=== PATIENT | female | born 1930 | race Caucasian/White ===

== ENCOUNTER 2016-11-09 14:26 | Inpatient (IN) | payer OTHER, MEDICARE ==
--- NOTE | 2016-11-09 14:27 | EDPHY ---
H & P Time Seen by Provider: 11/09/16 14:26 HPI/ROS: CHIEF COMPLAINT: right hip pain after mechanical fall. HISTORY OF PRESENT ILLNESS: Patient is a 86 y/o female arriving via EMS from independent living after a mechanical fall with subsequent right hip pain. A small laceration is present on her scalp. Patient states she hit her head during the fall. Patient takes Aspirin but is otherwise not anticoagulated. Per the patient, her right hip is painful and she is unable to lift that leg. Denies any neck pain, back pain, head pain or other complaints. Last oral intake was around 1330. REVIEW OF SYSTEMS: A comprehensive 10 point review of systems is otherwise negative aside from elements mentioned in the history of present illness. Source: Patient - Medical/Surgical History Hx Asthma: No Hx Chronic Respiratory Disease: No Hx Diabetes: No Hx Cardiac Disease: Yes Hx Renal Disease: No Hx Cirrhosis: No Hx Alcoholism: No Hx HIV/AIDS: No Hx Splenectomy or Spleen Trauma: No Other PMH: HLD, HTN, Vertigo - Social History Smoking Status: Former smoker Alcohol Use: None Drug Use: None - Physical Exam Exam: General Appearance: Elderly female, slightly obese, no acute distress Head: Small abrasion to the vertex of the scalp Eyes: Pupils equal, round, reactive ENT, Mouth: No hemotympanum, no oral trauma Neck: Nontender, trachea midline Respiratory: No chest wall tender, subcutaneous air, lungs clear bilaterally Cardiovascular: Regular rate and rhythm Abdomen: Abdomen is soft and nontender, pelvis stable Skin: No lacerations, No abrasion Back: No midline T/L/S pain Extremities: right hip tenderness, decreased active and passive range of motion secondary to pain Neurological: A&Ox3, GCS 15, normal motor function, normal sensory exam Constitutional: Initial Vital Signs Temperature (C) 97.3 C H 11/09/16 15:02 Heart Rate 77 11/09/16 15:02 Respiratory Rate 19 11/09/16 15:02 Blood Pressure 165/86 H 11/09/16 15:02 O2 Sat (%) 98 11/09/16 15:02 O2 Delivery Mode Room Air O2 (L/minute) 2 Allergies/Adverse Reactions: No Known Allergies Allergy (Unverified 11/09/16 15:07) Home Medications: Medication Instructions Recorded Aspirin EC [Aspirin EC 81 mg (*)] 81 mg PO Q48H 01/26/16 C/E/Zn/Cu/OM3/DHA/EPA/LUT/ZEAX 1 each PO BID 01/26/16 [Preservision Areds 2 Softgel] Citalopram [CeleXA 20 MG] 40 mg PO DAILY 01/26/16 Diazepam [Valium 2 MG (*)] 1 mg PO DAILY PRN 01/26/16 Docusate Sodium [Colace 100 MG (*)] 100 mg PO HS PRN 01/26/16 Levothyroxine [Synthroid 100 mcg 100 mcg PO DAILY06 01/26/16 (*)] Meclizine HCl [Meclizine HCl 12.5 12.5 mg PO BID PRN #10 tab 01/26/16 mg (*)] Simvastatin [Zocor] 40 mg PO HS 01/26/16 Medical Decision Making - Diagnostics EKG Interpretation: The 12 lead EKG was interpreted by myself. Normal sinus rhythm, rate 65 with atrial premature complexes. See hard copy and/or "tracemaster" electronic copy for interpretation. Imaging: X-ray: Right hip x-ray was obtained. I viewed the images myself on the PACS system. My interpretation of the images is: no obvious fracture. I discussed the x-ray findings with the patient. X-ray: Chest x-ray was obtained. The radiologist interpretation is Cardiomegaly and peribronchial cuffing with some mild pulmonary venous hypertension. X-ray read by Dr. Girard. . CT scan of the right lower extremity without IV contrast was obtained. I viewed the images independently on the PACS system. I discussed the results of the study with the radiologist, Dr. Long. Impression: Negative for fracture , hematoma or other explanation for acute pain. ED Course/Re-evaluation: Patient evaluation: Patient arrived via EMS from independent living after a mechanical fall with complaints of right hip pain and inability to ambulate. She does have a small abrasion to her scalp but has no complaints of headache or neck pain. She is neurologically intact and not anticoagulated. Given the patient's complaints of hip pain an x-ray was ordered. Clinically she has no evidence of additional injury. 1512: X-ray demonstrates no evidence of an obvious hip fracture.. I have ordered a CT right lower extremity without contrast at this time. 1645: Right extremity CT is negative for fracture. 1650 Reevaluation: The patient's pain is improved at this time. We will attempt to ambulate the patient through the ER. 1716: Patient was unable to bare weight on the affected leg. The patient continues to have a normal neurologic examination. She will require admission to the hospital secondary to the fact she is a significant fall risk. She will require PT and OT evaluation. 1751: I spoke with the hospitalist, Dr. Hayes and he accepts admission for hip contusion. Differential Diagnosis: Differential diagnosis considered includes pelvic fracture, hip fracture, dislocation, retroperitoneal hematoma, neurovascular injury, myofascial strain - Data Points Laboratory Results: Laboratory Results 11/09/16 15:03 11/09/16 15:03 11/09/16 15:03 WBC 6.33 10^3/uL (3.80-9.50) RBC 4.53 10^6/uL (4.18-5.33) Hgb 14.9 g/dL (12.6-16.3) Hct 44.7 % (38.0-47.0) MCV 98.7 fL (81.5-99.8) MCH 32.9 pg (27.9-34.1) MCHC 33.3 g/dL (32.4-36.7) RDW 12.9 % (11.5-15.2) Plt Count 291 10^3/uL (150-400) MPV 10.2 fL (8.7-11.7) Neut % (Auto) 66.1 % (39.3-74.2) Lymph % (Auto) 22.1 % (15.0-45.0) [place] % (Auto) 6.5 % (4.5-13.0) Eos % (Auto) 4.1 % (0.6-7.6) Baso % (Auto) 0.9 % (0.3-1.7) Nucleat RBC Rel Count 0.0 % (0.0-0.2) Absolute Neuts (auto) 4.18 10^3/uL (1.70-6.50) Absolute Lymphs (auto) 1.40 10^3/uL (1.00-3.00) Absolute Monos (auto) 0.41 10^3/uL (0.30-0.80) Absolute Eos (auto) 0.26 10^3/uL (0.03-0.40) Absolute Basos (auto) 0.06 10^3/uL (0.02-0.10) Absolute Nucleated RBC 0.00 10^3/uL (0-0.01) Immature Gran % 0.3 % (0.0-1.1) Immature Gran # 0.02 10^3/uL (0.00-0.10) PT 13.4 SEC (12.0-15.0) INR 1.03 (0.83-1.16) APTT 26.3 SEC (23.0-38.0) Sodium 140 mEq/L (134-144) Potassium 4.0 mEq/L (3.5-5.2) Chloride 102 mEq/L (97-110) Carbon Dioxide 27 mEq/l (22-31) Anion Gap 11 mEq/L (8-16) BUN 15 mg/dL (7-23) Creatinine 0.7 mg/dL (0.6-1.0) Estimated GFR > 60 Glucose 130 H mg/dL (70-100) Calcium 9.3 mg/dL (8.5-10.4) Medications Given: Discontinued Medications Morphine Sulfate (Morphine) 6 mg IVP EDNOW ONE Stop: 11/09/16 14:33 Last Admin: 11/09/16 15:43 Dose: 6 mg Departure - Departure Disposition: [facility] [place] Inpatient Acute Clinical Impression: Contusion, hip Qualifiers: Qualifier Code: (S70.01XA) Contusion of right hip, initial encounter Condition: Fair Report Scribed for: Tony Coy Report Scribed by: Joe Roche Date of Report: 11/09/16 Time of Report: 14:33 Physician Review and Approval Statement: 11/09/16 18:12 I reviewed the documentation of the scribe and attest that it is accurate.
[2016-11-09 15:10] LABS: % IMMATURE GRANULYOCYTES 0.3 % (0.0-1.1); ABSOLUTE IMMATURE GRANULOCYTES 0.02 10^3/uL (0.00-0.10); ADD DIFF? NO; ADD MORPH? NO; ADD SCAN? NO; ATYPICAL LYMPHOCYTE FLAG 0 (0-99); FRAGMENT RBC FLAG 0 (0-99); HEMATOCRIT 44.7 % (38.0-47.0); HEMOGLOBIN 14.9 g/dL (12.6-16.3); LEFT SHIFT FLG 0 (0-99); LIPEMIA HEMOLYSIS FLAG 80 (0-99); MEAN CELL HEMOGLOBIN 32.9 pg (27.9-34.1); MEAN CELL HEMOGLOBIN CONCENTR. 33.3 g/dL (32.4-36.7); MEAN CELL VOLUME 98.7 fL (81.5-99.8); MEAN PLATELET VOLUME 10.2 fL (8.7-11.7); PLATELET CLUMPS FLAG 0 (0-99); PLATELET COUNT 291 10^3/uL (150-400); RED BLOOD CELL COUNT 4.53 10^6/uL (4.18-5.33); RED CELL DISTRIBUTION WIDTH 12.9 % (11.5-15.2)
--- NOTE | 2016-11-09 15:10 | CPEKG ---
Heart Rate: 65 RR Interval: 923 P-R Interval: 176 QRSD Interval: 102 QT Interval: 412 QTC Interval: 429 P [place]: 50 QRS [place]: 23 T Wave [place]: 30 EKG Severity - OTHERWISE NORMAL ECG - EKG Impression: SINUS RHYTHM EKG Impression: ATRIAL PREMATURE COMPLEX Electronically Signed By: Tony Coy 09-Nov-2016 20:16:44
--- NOTE | 2016-11-09 15:24 | DX ---
Portable AP Supine Pelvis and Frogleg Lateral View of the Right Hip, Two Views Total, at 2:50 p.m. Clinical History: 86-year-old female who fell today and complains of right hip pain. Comparison Study: None. Findings: Orthopedic screws are seen bilaterally at the lumbosacral junction. The bones are demineral ized; however, there is no acute fracture or dislocation observed. Each femoral head is well-seated w ithin its respective acetabulum. The femoroacetabular joint spaces are preserved. There is mild degen erative change associated with the symphysis pubis and SI joints. Impression: There is no acute fracture identified. If there is a high clinical concern regarding an occult fracture, CT or MR imaging is suggested.
[2016-11-09 15:26] LABS: CALCIUM 9.3 mg/dL (8.5-10.4); CARBON DIOXIDE 27 mEq/l (22-31); CHLORIDE 102 mEq/L (97-110); CREATININE 0.7 mg/dL (0.6-1.0); GLOMERULAR FILTRATION RATE > 60; GLUCOSE 130 mg/dL (70-100); SODIUM 140 mEq/L (134-144)
--- NOTE | 2016-11-09 15:26 | DX ---
Portable AP Upright Chest November 09, 2016, at 2:48 p.m. Clinical History: 86-year-old female who fell today and complains of right hip pain. Comparison Study: Chest, dated January 25, 2016. Findings: The cardiac silhouette remains enlarged. There is peribronchial thickening, and the pulmona ry vasculature is redistributed. There is no focal infiltrate, pleural effusion, or pneumothorax. The re is mural calcification of the aortic knob and mild tortuosity of the descending thoracic aorta. Th ere is mild eventration of the right hemidiaphragm. There is mural calcification of the cervical szymanski tid arteries, and there is cervical facet degenerative change. Impression: Cardiomegaly and peribronchial cuffing with some mild pulmonary venous hypertension.
[2016-11-09 15:30] LABS: INR 1.03 (0.83-1.16); PROTIME(PATIENT) 13.4 SEC (12.0-15.0)
[2016-11-09 15:31] LABS: APTT 26.3 SEC (23.0-38.0)
[2016-11-09 15:55] LABS: ANION GAP 11 mEq/L (8-16)
--- NOTE | 2016-11-09 16:31 | CT ---
CT Lower Extremity, Right Hip History: Trauma. Fall. Pain. Technique: 1.5-mm helical images were obtained of the pelvis and right hip, without contrast. Multi planar reformation was performed. Radiation dose reduction technique was utilized. Findings: No evidence for a fracture or dislocation. Mild degenerative change is seen in both hips, with subarticular sclerosis, mild joint narrowing superiorly, and mild periarticular spurring. No s ignificant joint effusion. Degenerative disk and degenerative joint disease is seen in the lower lum bar spine, with evidence of fusion L5-S1. No evidence for a sacral fracture or insufficiency fractur e. No evidence for a soft tissue mass or abnormal fluid collection. Diverticulosis is seen in the s igmoid colon, without evidence for diverticulitis. No evidence for a retroperitoneal hematoma. Impressions 1. Mild degenerative change in both hips. No evidence for an acute fracture. 2. 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 Results called to Dr. Tony Coy.
[2016-11-09] MEDS ORDERED: IBUPROFEN 200 MG TAB PO PRN (18:27)
[2016-11-09] MEDS ORDERED: ONDANSETRON 4 MG/2 ML VIAL IVP PRN (18:27)
[2016-11-09] MEDS ORDERED: NS 1,000 ML IV SCH (18:30)
[2016-11-09] MEDS ORDERED: DOCUSATE SODIUM 100 MG CAP PO PRN (18:30)
[2016-11-09] MEDS ORDERED: MECLIZINE HCL 12.5 MG TAB PO PRN (18:30)
--- NOTE | 2016-11-09 18:31 | HOSPPROG ---
Hospitalist Progress Note Objective: Vital Signs Temp Pulse Resp BP Pulse Ox 36.9 C 87 15 145/82 H 98 11/09/16 18:16 11/09/16 18:16 11/09/16 18:16 11/09/16 18:16 11/09/16 18:16 PT 13.4 SEC (12.0-15.0) 11/09/16 15:03 INR 1.03 (0.83-1.16) 11/09/16 15:03 ICD10 Worksheet Patient Problems: Problems Problem Status Diagnosed Contusion, hip Acute Vertigo Acute
--- NOTE | 2016-11-09 18:33 | PDGENHP ---
History and Physical History and Physical: HISTORY AND PHYSICAL ADMISSION NOTE CC: Right hip pain after fall HISTORY: This patient who has chronic gait instability and history of falls caught her toe on some carpet and her apartment building today and tripped losing balance falling on her right side. She scraped her scalp against a wall and landed on her right hip. She was unable to get up due to pain in her right hip is brought here by ambulance. She does not have headache, neck pain, neurologic symptoms. There was no acute dizziness, lightheadedness, neurologic symptoms, cardiac symptoms, or other symptoms of acute illness or other cause of her fall besides a mechanical fall. Despite her chronic gait instability she does not use a cane or a walker. This is in spite of the fact that she is working currently with home care physical therapy on balance and gait issues and in fact saw them at her apartment this morning. There is no pain of any other injuries at this time. ROS: Comprehensive 10 system review of systems otherwise unrevealing PAST MEDICAL HISTORY: Gait instability with recurrent falls last fall approximately a month ago subdural hematoma from a previous fall Hyperlipidemia Vertigo Hypothyroidism Depression Spine surgery with hardware FAMILY MEDICAL HISTORY: Heart disease SOCIAL HISTORY: lives alone in an apartment at [facility] No tobacco former smoker No alcohol MEDICATIONS: Medication list is reconciled by the pharmacist in entered into the electronic computer, I have reviewed the list and ordered appropriate medicines No allergies PHYSICAL EXAMINATION: Vital Signs: to medicines stable without fever Belt Loop Cutter: Sinus rhythm Examination: General: alert, oriented, good mentation, relaxed There is a linear abrasion over the right side of the scalp. No other evidence of head or facial injury or neck injury and no signs of neurologic or ocular injury Skin: warm, dry, good color, no rash HEENT: normal Neck: no mass or jvd Resps: relaxed Lungs: clear breath sounds Heart: regular, no murmur Abdomen: soft, nondistended, nontender, +BS, no mass Upper Extremities: normal Lower Extremities: There is some mild tenderness at the lateral aspect of the right leg below the iliac crest in the soft tissue but no particularly bone or joint tenderness. She has pain with active hip flexion but can flex her hip and knee fully. There is no tenderness anywhere about the knee and no real pain with movement of the knee per Se and no tenderness along the shaft of the femur. There is no visible bruising bleeding or soft tissue injury. Neurologic: normal speech/language, normal production quality analyst, no focal weakness IV site: looks normal LABORATORY DATA: Remarkable only for a glucose 130 RADIOLOGY STUDIES: X-rays of the right hip, CT scan of the hips, and chest x-ray are reviewed by me. I see no evidence of any fractures of the femurs hips or pelvis though the distal half of the femurs are not visible. Chest x-ray is unremarkable for anything acute. I have reviewed the radiology reports and fine no concerning findings from the radiologist. ASSESSMENT: DIAGNOSES: # STATUS POST FALL AT HOME # CONTUSION TO RIGHT HIP AREA WITH NO EVIDENCE OF FRACTURES BUT PAIN WITH MOVEMENT OF THE HIP AND DIFFICULTY BEARING WEIGHT DUE TO PAIN # GAIT INSTABILITY WITH HIGH RISK OF RECURRENT FALLS # SCALP LACERATION BUT NO OTHER EVIDENCE OF HEAD OR NECK INJURY PLANS: - admission to inpatient status as I do not think she will be safe on her feet at home within 48 hours -Fall risk precautions -PT and OT evaluations -DVT prophylaxis I have reviewed the patient's case in detail with Dr. Tony Coy
[2016-11-09] MEDS: traMADol 50 MG TAB PO PRN (20:48)
[2016-11-09] MEDS: ATORVASTATIN CALCIUM 20 MG TAB PO SCH (20:48)
[2016-11-09] MEDS: PRESERVISION AREDS 2 EYE VITAMIN 1 EACH PO SCH (20:49)
[2016-11-09] MEDS: ASPIRIN EC 81 MG TAB PO SCH (20:49)
[2016-11-09] MEDS ORDERED: NON-FORMULARY NEW DRUG (Simvastatin [Zocor] 40 MG) PO SCH (21:00)
[2016-11-09] MEDS: LIDOCAINE 5% 1 EA PATCH TD SCH (23:45)
[2016-11-09] MEDS: PATCH REMOVAL 1 EA PATCH TD SCH (23:46)
[2016-11-10] MEDS: LEVOTHYROXINE 100 MCG TAB PO SCH (05:39)
[2016-11-10] MEDS: traMADol 50 MG TAB PO PRN ×2 (05:40→20:37)
[2016-11-10] MEDS: LIDOCAINE 5% 1 EA PATCH TD SCH (08:13)
[2016-11-10] MEDS: CITALOPRAM 20 MG TAB PO SCH (08:15)
[2016-11-10] MEDS: PRESERVISION AREDS 2 EYE VITAMIN 1 EACH PO SCH ×2 (08:15→20:37)
[2016-11-10] MEDS: ENOXAPARIN 40 MG/0.4 ML SYR SC SCH (08:15)
[2016-11-10] MEDS ORDERED: FLU VACC TS 2016-17(65YR+)/PF 0.5 ML SYR (FLUZONE HIGH DOSE) IM ONE (10:47)
--- NOTE | 2016-11-10 12:47 | DX ---
Right Wrist, Four Views History: Fall earlier, pain. Comparison: None available. Findings: No acute fracture is identified. Contour irregularity of the distal radius suggests sequela of old fracture. Osteopenia is present. 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 Mild radiocarpal joint space narrowing is present. Diffuse soft tissue swellin g is noted. Impressions 1. No acute osseous findings. 2. Additional findings as above.
--- NOTE | 2016-11-10 13:27 | HOSPPROG ---
Hospitalist Progress Note Assessment/Plan: 86-year-old female presents emergency room after suffering a mechanical fall. Complains of hip pain. This is my 1st encounter with the patient, chart reviewed. Discussed with case management. # Status post fall at home Continue PT OT # Contusion to right hip area no evidence of fractures but pain with movement of the hip and difficulty bearing weight due to pain Continue PT OT # wrist pain X-ray of right wrist with no identifiable acute fracture # Gait instability with high risk of recurrent falls Chronic # Scalp laceration no other evidence of head or neck injury No specific complaints # disposition Unclear at this time Will likely need care home facility rehabilitation Continue evaluation in the hospital Subjective: Feeling better today. Still having significant pain in the hip. Complaints of right wrist pain and swelling. Objective: Vital Signs Temp Pulse Resp BP Pulse Ox 36.6 C 61 18 130/51 H 92 11/10/16 11:25 11/10/16 11:25 11/10/16 11:25 11/10/16 11:25 11/10/16 11:25 11/09/16 11/10/16 11/11/16 05:59 05:59 05:59 Intake Total 200 300 Balance 200 300 PT 13.4 SEC (12.0-15.0) 11/09/16 15:03 INR 1.03 (0.83-1.16) 11/09/16 15:03 - Physical Exam Constitutional: no apparent distress, obese, uncomfortable Eyes: PERRL, anicteric sclera, EOMI Ears, Nose, Mouth, Throat: moist mucous membranes, hearing normal, ears appear normal Cardiovascular: regular rate and rhythym, No JVD, No edema Respiratory: no respiratory distress, no rales or rhonchi, reduced air movement Gastrointestinal: No tenderness, No ascites Skin: warm, normal color, No erythema Musculoskeletal: generalized weakness, No full muscle strength, No normal joint ROM Neurologic: AAOx3 Psychiatric: interacting appropriately, not anxious, not encephalopathic ICD10 Worksheet Patient Problems: Problems Problem Status Diagnosed Contusion, hip Acute Vertigo Acute
[2016-11-10] MEDS: ATORVASTATIN CALCIUM 20 MG TAB PO SCH (20:37)
[2016-11-10] MEDS: PATCH REMOVAL 1 EA PATCH TD SCH (20:37)
[2016-11-11] MEDS: LEVOTHYROXINE 100 MCG TAB PO SCH (05:25)
[2016-11-11] MEDS: ACETAMINOPHEN 325 MG TAB PO PRN ×2 (05:26→15:54)
[2016-11-11] MEDS: CITALOPRAM 20 MG TAB PO SCH (08:57)
[2016-11-11] MEDS: PRESERVISION AREDS 2 EYE VITAMIN 1 EACH PO SCH ×2 (08:57→20:28)
[2016-11-11] MEDS: ENOXAPARIN 40 MG/0.4 ML SYR SC SCH (09:01)
[2016-11-11] MEDS: LIDOCAINE 5% 1 EA PATCH TD SCH (09:02)
[2016-11-11] MEDS: traMADol 50 MG TAB PO PRN ×2 (11:49→20:28)
--- NOTE | 2016-11-11 12:47 | HOSPPROG ---
Hospitalist Progress Note Assessment/Plan: 86-year-old female presents emergency room after suffering a mechanical fall. Complains of hip pain. Discussed with case management. # Status post fall at home Continue PT OT # Contusion to right hip area no evidence of fractures but pain with movement of the hip and difficulty bearing weight due to pain Continue PT OT # wrist pain X-ray of right wrist with no identifiable acute fracture # Gait instability with high risk of recurrent falls Chronic # Scalp laceration no other evidence of head or neck injury No specific complaints # disposition Unclear at this time Will likely need [facility] facility rehabilitation Continue evaluation in the hospital Subjective: Feeling a bit better today. Was able to ambulate in the hallway with a walker. Pain is significantly improved since yesterday. Objective: Vital Signs Temp Pulse Resp BP Pulse Ox 37.0 C 63 16 161/68 H 91 L 11/11/16 12:00 11/11/16 12:00 11/11/16 12:00 11/11/16 12:00 11/11/16 12:00 11/10/16 11/11/16 11/12/16 05:59 05:59 05:59 Intake Total 200 1100 Balance 200 1100 PT 13.4 SEC (12.0-15.0) 11/09/16 15:03 INR 1.03 (0.83-1.16) 11/09/16 15:03 - Physical Exam Constitutional: appears nourished, obese Eyes: PERRL, anicteric sclera Ears, Nose, Mouth, Throat: moist mucous membranes, hearing normal, ears appear normal Cardiovascular: No JVD, No edema Respiratory: no respiratory distress, reduced air movement Gastrointestinal: No tenderness, No ascites Skin: warm, normal color Musculoskeletal: muscular tenderness, generalized weakness Neurologic: AAOx3 Psychiatric: interacting appropriately, not anxious, not encephalopathic ICD10 Worksheet Patient Problems: Problems Problem Status Diagnosed Contusion, hip Acute Vertigo Acute
[2016-11-11] MEDS: ASPIRIN EC 81 MG TAB PO SCH (18:03)
[2016-11-11] MEDS: ATORVASTATIN CALCIUM 20 MG TAB PO SCH (20:28)
[2016-11-11] MEDS: PATCH REMOVAL 1 EA PATCH TD SCH (20:31)
[2016-11-12] MEDS: LEVOTHYROXINE 100 MCG TAB PO SCH (05:17)
[2016-11-12] MEDS: ACETAMINOPHEN 325 MG TAB PO PRN ×2 (05:17→12:22)
[2016-11-12 08:41] VITALS: TEMP 97.8
[2016-11-12] MEDS: PRESERVISION AREDS 2 EYE VITAMIN 1 EACH PO SCH (09:11)
[2016-11-12] MEDS: LIDOCAINE 5% 1 EA PATCH TD SCH (09:11)
[2016-11-12] MEDS: CITALOPRAM 20 MG TAB PO SCH (09:11)
[2016-11-12] MEDS: ENOXAPARIN 40 MG/0.4 ML SYR SC SCH (09:11)
--- NOTE | 2016-11-12 11:29 | PDIAF ---
- Diagnosis Diagnosis: Fall Code Status: Full Code - Medication Management Discharge Medications: Medications to Continue on Transfer Aspirin EC [Aspirin EC 81 mg (*)] 81 mg PO Q48H 01/26/16 [Last Taken 11/08/16] C/E/Zn/Cu/OM3/DHA/EPA/LUT/ZEAX [Preservision Areds 2 Softgel] 1 each PO BID [Last Taken 11/09/16] Citalopram [CeleXA 20 MG] 40 mg PO DAILY 01/26/16 [Last Taken 11/09/16] Diazepam [Valium 2 MG (*)] 1 mg PO DAILY PRN 01/26/16 [Last Taken 11/05/16] Docusate Sodium [Colace 100 MG (*)] 100 mg PO HS PRN 01/26/16 [Last Taken ] Levothyroxine [Synthroid 100 mcg (*)] 100 mcg PO DAILY06 01/26/16 [Last Taken ] Meclizine HCl [Meclizine HCl 12.5 mg (*)] 12.5 mg PO BID PRN #10 tab 01/26/16 [ Last Taken 11/05/16] Simvastatin [Zocor] 40 mg PO HS 01/26/16 [Last Taken 11/09/16] Acetaminophen [Tylenol 325mg (*)] 650 mg PO Q4HRS PRN #0 tab 11/12/16 [Last Taken Unknown] Ibuprofen [Motrin (*)] 400 mg PO Q4HRS PRN #0 tab 11/12/16 [Last Taken Unknown] Lidocaine 5% [Lidoderm 5% Patch (*)] 1 ea TD DAILY #30 patch 11/12/16 [Last Taken Unknown] traMADol [Ultram 50 mg (*)] 50 mg PO Q6HRS PRN #14 tab 11/12/16 [Last Taken Unknown] Discharge Medications: Refer to the Discharge Home Medication list for PRN reason. PICC Care - Routine: N/A - Orders Services needed: Home Care, Registered Nurse, Physical Therapy, Occupational Therapy Home Care Face to Face: I certify that this patient was under my care and that I had the required [id number] encounter meeting the encounter requirements on the discharge day. My findings support the fact that the patient is homebound as defined in CMS Chapter 7 Medicare Benefits Manual 30.1.1, The condition of the patient is such that there exists a normal inability to leave home and consequently, leaving home would require a considerable and taxing effort. - Follow Up Care Current Providers and Referrals: Latrice Jasmine MD [Primary Care Provider] -
--- NOTE | 2016-11-12 14:10 | GDS ---
[f rep st] DISCHARGE SUMMARY DISCHARGE DIAGNOSES: 1. Mechanical fall. 2. Contusion to right hip. 3. Right wrist pain. 4. Chronic gait instability. 5. Scalp laceration. STUDIES AND PROCEDURES DONE: 1. Hip x-ray. 2. CT of the hip. 3. Wrist x-ray. PHYSICAL EXAM: GENERAL: The patient is alert and oriented, in no acute distress. VITAL SIGNS: Afe brile at 36.6, pulse 63, respiratory rate 12. Blood pressure is 139/66. She is saturating 93% on room air. I have seen and evaluated the patient on the day of discharge. HOSPITAL COURSE: The patient is an 86-year-old female who suffered a mechanical fall and presented t o the emergency room. She was evaluated and diagnosed with: 1. Mechanical fall. She was evaluated by Physical therapy, as well as Occupational Therapy during t his hospitalization. Home Health care has been recommended. 2. Contusion to the right hip area. This is stable without identifiable fracture. The patient is a ble to bear weight and ambulate independently. 3. Right wrist pain. There is no source of complication, and the patient's pain has resolved. 4. Scalp laceration. The patient will follow up in the outpatient setting to have her sutures remov ed in 4-5 days. DISPOSITION: The patient will be discharged home with Home Health care. custodial facility saez s been offered to the patient at the time of disposition; however, she is refusing. Her daughter leobardo covington come and stay with her to assure extra safety. PENDING STUDIES: There are no pending studies. FOLLOWUP: Will be with her primary care physician, Dr. Jasmine, in the next 3-4 days. CARE TIME: I spent greater than 35 minutes in the care, coordination, and management of this patient 's disposition. /[id number]/MODL
[2016-11-12] MEDS: traMADol 50 MG TAB PO PRN (14:51)
[2016-11-12 15:55] VITALS: BP 149/85; PULSE 60; RESP 14; O2SAT 94
== END 2016-11-12 16:43 | disposition home health service (06) | DRG 605 ==
LOC: EDUNIT# → F3N 18:30
PROVIDERS: ADMIT Internal Medicine; ATTEND Internal Medicine
DX: S70.01XA Contusion of right hip, initial encounter (principal); S01.01XA Laceration without foreign body of scalp, initial encounter; M25.531 Pain in right wrist; I10 Essential (primary) hypertension; E78.5 Hyperlipidemia, unspecified; R26.89 Other abnormalities of gait and mobility; W01.0XXA Fall on same level from slipping, tripping and stumbling without subsequent striking against object, initial encounter; Y92.011 Dining room of single-family (private) house as the place of occurrence of the external cause; Z23 Encounter for immunization; Z87.891 Personal history of nicotine dependence
CPT/HCPCS: 92507-GN; 92523-GN; 96374; 97001-GP; 97003-GO; 97116-GP; 97535-GO; G0008; G8978-GP-CK; G8979-GP-CI; G8987-GO-CJ; G8988-GO-CI; G9165-GN-CI; G9166-GN-CH; J1650

== ENCOUNTER → 2017-05-08 | Outpatient (CLI) | payer OTHER, MEDICARE | LOC: CIMAGING 14:45 → EDSTATUS 05-23 12:24 | PROVIDERS: ATTEND Internal Medicine | DX: M19.012 Primary osteoarthritis, left shoulder (principal) | CPT/HCPCS: 73030; G0463 ==

== ENCOUNTER → 2017-08-29 | Outpatient (CLI) | payer OTHER, MEDICARE | LOC: FIMAGING 10:52 | PROVIDERS: ATTEND Ophthalmology | DX: H34.212 Partial retinal artery occlusion, left eye (principal) ==